=== PATIENT | male | born 1975 | race Caucasian/White ===

== ENCOUNTER 2017-09-05 19:08 | Emergency (ER) | payer MEDICAID, OTHER ==
[2017-09-05] MEDS: morphine 10 MG INJ IV (20:48)
== END 2017-09-05 23:24 | disposition home or self-care (01) ==
LOC: E/R 19:08
DX: M54.9 Dorsalgia, unspecified (principal); F17.210 Nicotine dependence, cigarettes, uncomplicated
CPT/HCPCS: 71045; 72128; 72131; 96374; 99285-25